=== PATIENT | male | born 1995 | race Caucasian/White ===

== ENCOUNTER 2019-07-08 09:03 | Emergency (ER) | payer OTHER ==
[~2019-07-08] VITALS: Ht 180.3 cm; Wt 72.6 kg
[2019-07-08] MEDS ORDERED: Bactrim Ds Tab1 EACH PO (10:20)
== END 2019-07-08 10:40 | disposition home or self-care (01) ==
LOC: ER 09:03
DX: L02.415 Cutaneous abscess of right lower limb (principal); Z88.0 Allergy status to penicillin; F17.200 Nicotine dependence, unspecified, uncomplicated
CPT/HCPCS: 10060; 90471; 90714; 99282-25

== ENCOUNTER 2019-10-10 20:43 | Emergency (ER) | payer OTHER ==
[~2019-10-10] VITALS: Ht 180.3 cm; Wt 74.8 kg
[~2019-10-10 20:43] MED LIST: Bactrim Ds Tab1 EACH PO
== END 2019-10-10 22:30 | disposition home or self-care (01) ==
LOC: ER 20:43
DX: M25.531 Pain in right wrist (principal); F17.210 Nicotine dependence, cigarettes, uncomplicated; Z88.1 Allergy status to other antibiotic agents
CPT/HCPCS: 29125; 73110; 99283-25

== ENCOUNTER 2019-12-17 02:43 | Emergency (ER) | payer OTHER ==
[~2019-12-17] VITALS: Ht 180.3 cm; Wt 74.8 kg
== END 2019-12-17 04:30 | disposition home or self-care (01) ==
LOC: ER 02:43
DX: S02.122A Fracture of orbital roof, left side, initial encounter for closed fracture (principal); F17.210 Nicotine dependence, cigarettes, uncomplicated; Z88.0 Allergy status to penicillin; Y04.2XXA Assault by strike against or bumped into by another person, initial encounter
CPT/HCPCS: 70450; 70486; 99284-25